=== PATIENT | female | born 1985 | race Caucasian/White ===

== ENCOUNTER 2017-04-13 17:38 | Emergency (ER) | payer MEDICAID ==
[2017-04-13 17:46] VITALS: BP 135/81; PULSE 81; RESP 16; TEMP 98.1; O2SAT 96
--- NOTE | 2017-04-13 18:10 | EDPHY ---
H & P Time Seen by Provider: 04/13/17 17:57 HPI/ROS: CHIEF COMPLAINT: Stye left eye HISTORY OF PRESENT ILLNESS: 32-year-old female presents to the emergency department complaining of styes to her left eye. The patient states 2 weeks ago she had similar symptoms in the left eye and she applied warm compresses and resolved. She now states that is recurrent and now she has 1 on the upper and lower eyelid. Denies any reported trauma. Denies visual changes. ROS: Denies eye swelling, mattering, double vision, blurry vision, foreign body sensation Past Medical/Surgical History: Negative Social History: and lives in [place] Smoking Status: Never smoked Physical Exam: Pupils:equal round and reactive to light EOMI Lids: Mild erythema and slight swelling noted to the upper eyelid close to the medial canthus as well as upper eyelid close to the medial canthus. No purulent drainage noted. No evidence of periorbital cellulitis. No the lid edema noted. Skin: no proptosis, no periorbital erythema or swelling, no vesicles Conjunctivae: not injected, no discharge Cornea: Slit-lamp examination was not indicated. Constitutional: Initial Vital Signs Temperature (C) 36.7 C 04/13/17 17:44 Heart Rate 81 04/13/17 17:44 Respiratory Rate 16 04/13/17 17:44 Blood Pressure 135/81 H 04/13/17 17:44 O2 Sat (%) 96 04/13/17 17:44 O2 Delivery Mode Room Air Allergies/Adverse Reactions: No Known Allergies Allergy (Verified 04/13/17 17:43) Home Medications: Medication Instructions Recorded Erythromycin 0.5% 0.5 inch LEFTEYE QID #0 opht.oint 04/13/17 MDM/Departure - [facility] ED Course/Re-evaluation: Clinically I think this patient has external ordered:. She will be treated with erythromycin ophthalmic ointment as well as warm compresses. Encouraged to return if any visual changes or any other change in symptoms or if she feels worse in any way. I also discouraged her from using makeup. - Depart Disposition: Home, Routine, Self-Care Clinical Impression: Hordeolum external Qualifiers: Laterality: left Eyelid: unspecified eyelid Qualified Code(s): H00.016 - Hordeolum externum left eye, unspecified eyelid Condition: Good Instructions: Stye (ED) Additional Instructions: Continue warm compresses as discussed. Apply erythromycin ophthalmic ointment several times daily. Return to the emergency department if you develop visual changes, increased redness, fever, or if you feel worse in any way. Prescriptions: Erythromycin 0.5% 0.5 inch LEFTEYE QID #0 opht.oint Referrals: Sara Gallagher PA [Primary Care Provider] - 2-3 days, if not improved
== END 2017-04-13 18:15 | disposition home or self-care (01) ==
DX: H00.016 Hordeolum externum left eye, unspecified eyelid (principal)

== ENCOUNTER 2017-11-24 21:37 | Emergency (ER) | payer MEDICAID, OTHER ==
[2017-11-24 22:40] LABS: PLATELET COUNT 348 10^3/uL (150-400)
[2017-11-24] MEDS ORDERED: MAG HYDROX/AL HYDROX/SIMETH 30 ML UDCUP PO ONE (23:12)
[2017-11-24] MEDS ORDERED: LIDOCAINE 2% VISCOUS 15 ML UDCUP PO ONE (23:12)
[2017-11-24] MEDS ORDERED: HYOSCYAMINE SULFATE 0.125 MG TAB PO ONE (23:12)
--- NOTE | 2017-11-24 23:16 | EDPHY ---
H & P Smoking Status: Never smoked Time Seen by Provider: 11/24/17 23:02 HPI/ROS: CHIEF COMPLAINT: Abdominal pain HISTORY OF PRESENT ILLNESS: 32-year-old female presents to the emergency department with epigastric abdominal pain. Symptoms began around 4 o'clock this evening. She has had similar symptoms in the past. No treatment at home. She states that she was at work when the symptoms came on. She tried taking ibuprofen without relief. She denies ever chest pain or difficulty breathing. She does not feel nauseous. No vomiting. No melena. No neck or back pain. No reported trauma. She does not drink alcohol. REVIEW OF SYSTEMS: Constitutional: No fever, no chills. Eyes: No double or blurry vision. ENT: No sore throat. Respiratory: No cough, no shortness of breath. Cardiac: No chest pain. Gastrointestinal: Abdominal pain as above. No vomiting or diarrhea. Genitourinary: No dysuria. Musculoskeletal: No neck or back pain. Skin: No rashes. Neurological: No headache. (Mervat Barber) Past Medical/Surgical History: Borderline diabetic (Mervat Barber) Social History: and lives in [place] (Mervat Barber) Physical Exam: General Appearance: Alert, no distress. Afebrile. No apparent distress. Eyes: Pupils equal and round. Extraocular motions are all intact. ENT: Mouth: Mucous membranes moist. Respiratory: No wheezing, rhonchi, or rales, lungs are clear to auscultation. Cardiovascular: Regular rate and rhythm. Gastrointestinal: Abdomen is soft and obese. She has reproducible pain with palpation in the epigastric area. There is no rebound, guarding or masses noted. No CVA tenderness bilaterally. Neurological: Alert and oriented x 3, cranial nerves II through XII grossly intact Skin: Warm and dry, no rashes. Musculoskeletal: Nontender to palpate along the cervical, thoracic or lumbar spine. Neck is supple. Extremities: Full range of motion and no peripheral edema. Psychiatric: Patient is oriented X 3, there is no agitation. (Mervat Barber) Constitutional: Initial Vital Signs Temperature (C) 37.0 C 11/24/17 21:45 Heart Rate 99 11/24/17 21:45 Respiratory Rate 18 11/24/17 21:45 Blood Pressure 156/111 H 11/24/17 21:45 O2 Sat (%) 97 11/24/17 21:45 O2 Delivery Mode Room Air Allergies/Adverse Reactions: No Known Allergies Allergy (Verified 04/13/17 17:43) Home Medications: Medication Instructions Recorded NK [No Known Home Meds] 11/24/17 Medical Decision Making - Diagnostics EKG Interpretation: EKG: Complete interpretation has been separately recorded in the [employer] archive. Summary impression: Normal sinus rhythm with some T-wave inversions. (Prerna Arguello) ED Course/Re-evaluation: 32-year-old female presents to the emergency department with epigastric abdominal pain. Patient has reproducible pain with palpation in the epigastric area. Patient was given GI cocktail. Laboratory studies were ordered by the nurse and are within normal limits with the exception of her random glucose at 243. Patient has a history of borderline diabetes and has not had this followed by her primary care provider in several months. She does not take any medication for this. She has been told that she is "prone to diabetes". The patient had relief with a GI cocktail. She no longer had any pain with palpation in the epigastric area. She does tells me that she takes approximately 10 ibuprofen per week for her chronic headaches. I encouraged her to have close follow-up with clothing sales assistant. She understands that gastric or duodenal ulcers could not be excluded. I did encourage her to use [id number] Prilosec, Pepcid and or Tums. She was instructed to return to the emergency department if she developed any melena, worsening abdominal pain, hematemesis, or any other concerns. Patient felt comfortable being discharged home. (Mervat Barber) PHYSICIAN DOCUMENTATION: The patient was evaluated and managed by the Physician Postage Machine Operator. My co- signature indicates that I have reviewed this chart and I agree with the findings and plan of care as documented. I am the secondary supervising physician. (Prerna Arguello) Differential Diagnosis: Including but not limited to esophagitis, GERD, peptic ulcer disease (Mervat Barber) - Data Points Laboratory Results: Laboratory Results 11/24/17 22:12 11/24/17 22:12 11/24/17 11/24/17 22:12 22:12 WBC 7.68 10^3/uL 10^3/uL (3.80-9.50) RBC 5.24 10^6/uL 10^6/uL (4.18-5.33) Hgb 14.0 g/dL g/dL (12.6-16.3) Hct 41.9 % % (38.0-47.0) MCV 80.0 fL L fL (81.5-99.8) MCH 26.7 pg L pg (27.9-34.1) MCHC 33.4 g/dL g/dL (32.4-36.7) RDW 12.2 % % (11.5-15.2) Plt Count 348 10^3/uL 10^3/uL (150-400) MPV 10.1 fL fL (8.7-11.7) Neut % (Auto) 52.2 % % (39.3-74.2) Lymph % (Auto) 36.7 % % (15.0-45.0) Donley % (Auto) 6.5 % % (4.5-13.0) Eos % (Auto) 3.8 % % (0.6-7.6) Baso % (Auto) 0.5 % % (0.3-1.7) Nucleat RBC Rel Count 0.0 % % (0.0-0.2) Absolute Neuts (auto) 4.01 10^3/uL 10^3/uL (1.70-6.50) Absolute Lymphs (auto) 2.82 10^3/uL 10^3/uL (1.00-3.00) Absolute Monos (auto) 0.50 10^3/uL 10^3/uL (0.30-0.80) Absolute Eos (auto) 0.29 10^3/uL 10^3/uL (0.03-0.40) Absolute Basos (auto) 0.04 10^3/uL 10^3/uL (0.02-0.10) Absolute Nucleated RBC 0.00 10^3/uL 10^3/uL (0-0.01) Immature Gran % 0.3 % % (0.0-1.1) Immature Gran # 0.02 10^3/uL 10^3/uL (0.00-0.10) Sodium 137 mEq/L mEq/L (135-145) Potassium 4.1 mEq/L mEq/L (3.5-5.2) Chloride 103 mEq/L mEq/L (97-110) Carbon Dioxide 20 mEq/l L mEq/l (22-31) Anion Gap 14 mEq/L mEq/L (8-16) BUN 13 mg/dL mg/dL (7-23) Creatinine 0.4 mg/dL L mg/dL (0.6-1.0) Estimated GFR > 60 Glucose 243 mg/dL H mg/dL (70-100) Calcium 10.0 mg/dL mg/dL (8.5-10.4) Medications Given: Discontinued Medications Al Hydroxide/Mg Hydroxide (Maalox Susp) 30 ml PO ONCE ONE Stop: 11/24/17 23:13 Last Admin: 11/24/17 23:30 Dose: 30 ml Hyoscyamine Sulfate (Levsin, Hyomax-Sl) 0.25 mg PO ONCE ONE Stop: 11/24/17 23:13 Last Admin: 11/24/17 23:30 Dose: 0.25 mg Lidocaine (Lidocaine 2% Viscous) 15 ml PO ONCE ONE Stop: 11/24/17 23:13 Last Admin: 11/24/17 23:30 Dose: 15 ml Departure - Departure Disposition: Home, Routine, Self-Care Clinical Impression: Hyperglycemia, Abdominal pain, GERD (gastroesophageal reflux disease) Condition: Good Instructions: Gastroesophageal Reflux Disease (ED), Abdominal Pain (ED), Nondiabetic Hyperglycemia (ED) Additional Instructions: You should follow up with your primary care provider regarding your elevated random blood sugar at 243 today in the emergency department. You should have a fasting blood sugar and an A1c drawn. You may try [id number] Prilosec for your abdominal pain. You may also try Pepcid and Tums. You should follow up with clothing sales assistant. Referrals: [facility],. [Clinic] - 1-2 days without fail Irving White MD [Medical Doctor] - 2-3 days, call for appt. ( Concrete Batcher on-call)
--- NOTE | 2017-11-24 23:34 | CPEKG ---
Heart Rate: 102 RR Interval: 588 P-R Interval: 136 QRSD Interval: 92 QT Interval: 352 QTC Interval: 459 P Mathews: 33 QRS Mathews: -17 T Wave Mathews: -8 EKG Severity - BORDERLINE ECG - EKG Impression: SINUS TACHYCARDIA EKG Impression: BORDERLINE LEFT AXIS DEVIATION EKG Impression: BORDERLINE T ABNORMALITIES, INFERIOR LEADS Electronically Signed By: Erasmo Ward 25-Nov-2017 11:23:48
[2017-11-24 23:54] VITALS: RESP 16
[2017-11-24 23:56] VITALS: BP 156/99; PULSE 79; TEMP 98.6; O2SAT 97
== END 2017-11-24 23:56 | disposition home or self-care (01) ==
DX: K21.9 Gastro-esophageal reflux disease without esophagitis (principal); R73.9 Hyperglycemia, unspecified

== ENCOUNTER 2018-09-28 15:48 | Observation (INO) | payer OTHER | END 2018-09-28 16:50 | disposition home or self-care (01) | LOC: FLD 15:48 | PROVIDERS: ADMIT Obstetrics & Gynecology; ATTEND Obstetrics & Gynecology | DX: O36.8130 Decreased fetal movements, third trimester, not applicable or unspecified (principal); Z3A.31 31 weeks gestation of pregnancy | CPT/HCPCS: 59025; G0378 ==

== ENCOUNTER 2018-11-08 19:55 | Observation (INO) | payer OTHER ==
[2018-11-08] MEDS ORDERED: ACETAMINOPHEN 500 MG TAB PO ONE (21:45)
== END 2018-11-08 22:29 | disposition home or self-care (01) ==
LOC: FLD 19:55
PROVIDERS: ADMIT Advanced Practice Midwife; ATTEND Advanced Practice Midwife
DX: R10.2 Pelvic and perineal pain (principal); O24.414 Gestational diabetes mellitus in pregnancy, insulin controlled; Z3A.37 37 weeks gestation of pregnancy
CPT/HCPCS: 59025; G0378

== ENCOUNTER 2018-11-13 22:14 | Observation (INO) | payer OTHER | END 2018-11-13 23:50 | disposition home or self-care (01) | LOC: FLD 22:14 | PROVIDERS: ADMIT Advanced Practice Midwife; ATTEND Advanced Practice Midwife | DX: Z34.93 Encounter for supervision of normal pregnancy, unspecified, third trimester (principal); Z3A.37 37 weeks gestation of pregnancy | CPT/HCPCS: 59025; G0378 ==